=== PATIENT | female | born 2000 | race Caucasian/White ===

== ENCOUNTER 2020-01-16 12:06 | Outpatient (CLI) | payer OTHER, SELFPAY ==
[2020-01-16 13:27] LABS: Thyroid Stimulating Hormone 3.81 uIU/mL (0.52-4.13)
[2020-01-20 05:32] LABS: FSH 3.1 mIU/mL (***); Prolactin 8.8 ng/mL (***)
[2020-01-20 12:29] LABS: Testosterone Total 37 ng/dL (2-45)
== END 2020-01-16 12:07 | disposition home or self-care (01) ==
LOC: CHSLAB 12:15
DX: N91.2 Amenorrhea, unspecified (principal)
CPT/HCPCS: 36415; 83001; 84146; 84403; 84443

== ENCOUNTER 2024-02-18 10:05 | Outpatient (CLI) | payer OTHER, SELFPAY ==
[2024-02-18 10:33] VITALS: BP 107/59; PULSE 86
[2024-02-18 10:40] VITALS: BP 111/48; PULSE 82; BMI 51.9
[2024-02-18 10:46] VITALS: BP 111/48; PULSE 82
[2024-02-18 11:00] VITALS: BP 111/48; PULSE 82
[2024-02-18 11:01] VITALS: BP 117/47; PULSE 84
[2024-02-18 11:05] LABS: Hematocrit 37.7 % (37.0-47.0); Hemoglobin 12.3 g/dL (12.0-15.0); Immature Granulocyte Percent A 0.6 % (0-0.5); Mean Corpuscular HGB Conc 32.6 g/dl (32-36); Mean Corpuscular Hemoglobin 29.3 pg (26-34); Mean Corpuscular Volume 89.8 fl (80-100); Mean Platelet Volume 11.9 fl (7.4-10.4); Platelet Count Result 179 k/mm3 (150-375); Red Cell Distribution Width 14.6 % (11.5-14.5); White Blood Count 11.1 K/mm3 (4.5-10.0)
[2024-02-18 11:06] LABS: Basophils Percent Auto 0.2 % (0.2-1.2); Eosinophils Absolute Auto 0.1 K/mm3 (0-0.3); Eosinophils Percent Auto 0.6 % (0-4.4); Immature Granulocyte Absolute 0.07 K/mm3 (0.00-0.031); Lymphocytes Absolute Auto 1.85 K/mm3 (0.9-3.2); Lymphocytes Percent Auto 16.7 % (18.3-44.2); Monocytes Absolute Auto 0.6 K/mm3 (0.1-0.6); Monocytes Percent Auto 5.6 % (2.6-8.5); Neutrophils Absolute Auto 8.5 K/mm3 (1.3-6.7); Neutrophils Percent Auto 76.3 % (45.5-73.1)
[2024-02-18 11:10] LABS: Creatinine Urine 129.2 mg/dL; Total Protein Urine Random 9 mg/dL; Ur Ttl Prot Creatinine Ratio 0.07 mg/mg (0-0.20)
[2024-02-18 11:12] LABS: Alanine Aminotransferase 11 U/L (6-35); Albumin Level 3.8 g/dL (3.5-5.1); Alkaline Phosphatase 70 U/L (38-126); Anion Gap 9 mmol/L (4-12); Aspartate Amino Transferase 15 U/L (14-36); Bilirubin,Total 0.2 mg/dL (0.2-1.3); Blood Urea Nitrogen 4 mg/dL (7-17); Carbon Dioxide 24 mmol/L (22-30); Chloride 102 mmol/L (98-107); Estimated Glomerular Filt Rate > 60; Glucose 110 mg/dL (65-110); Potassium 3.6 mmol/L (3.4-5.0); Sodium 135 mmol/L (137-145); Uric Acid 3.5 mg/dL (2.5-7.5)
[2024-02-18 11:23] LABS: Add Urine Microscopic? YES; Appearance Urine Cloudy (Clear); Bacteria Urine 4+ /hpf; Bilirubin Urine Negative (Negative); Blood Urine Negative (Negative); Color Urine Yellow (Yellow); Glucose Urine UA Negative (Negative); Ketones Urine Negative (Negative); Leukocyte Esterase Ur 1+ LEU/UL (Negative); Need Manual Microscopic Reviewed; Nitrate Urine Negative (Negative); Non Pathogenic Casts 0-2; Protein Urine Negative (Negative); Specific Grav Ur 1.016 (1.001-1.035); Squamous Epithelial Cell Urine Many /hpf (Few)
== END 2024-02-18 11:20 | disposition home or self-care (01) ==
LOC: ANHOBOP 10:14 → ANHOBPP 10:15
PROVIDERS: Visit Provider Advanced Practice Midwife
DX: O13.9 Gestational [pregnancy-induced] hypertension without significant proteinuria, unspecified trimester (principal); Z3A.00 Weeks of gestation of pregnancy not specified
CPT/HCPCS: 36415; 59025; 80053; 81001; 82570; 84156; 84550; 85025; 87086; 87088; 99199

== ENCOUNTER 2024-04-14 17:05 | Outpatient (CLI) | payer OTHER, SELFPAY ==
[2024-04-14 17:31] VITALS: BP 122/75; PULSE 71
[2024-04-14 17:39] LABS: Basophils Percent Auto 0.2 % (0.2-1.2); Eosinophils Percent Auto 0.3 % (0-4.4); Hematocrit 37.7 % (37.0-47.0); Hemoglobin 12.2 g/dL (12.0-15.0); Immature Granulocyte Absolute 0.05 K/mm3 (0.00-0.031); Immature Granulocyte Percent A 0.4 % (0-0.5); Lymphocytes Percent Auto 18.5 % (18.3-44.2); Mean Corpuscular HGB Conc 32.4 g/dl (32-36); Mean Corpuscular Hemoglobin 28.1 pg (26-34); Mean Corpuscular Volume 86.9 fl (80-100); Mean Platelet Volume 11.7 fl (7.4-10.4); Neutrophils Absolute Auto 9.5 K/mm3 (1.3-6.7); Neutrophils Percent Auto 72.6 % (45.5-73.1); Platelet Count Result 182 k/mm3 (150-375); Red Blood Count 4.34 M/mm3 (4.2-5.4)
[2024-04-14 17:46] LABS: Creatinine Urine 101.4 mg/dL; Total Protein Urine Random 36 mg/dL; Ur Ttl Prot Creatinine Ratio 0.36 mg/mg (0-0.20)
[2024-04-14 17:47] VITALS: BP 121/57; PULSE 72
[2024-04-14 17:52] LABS: Alanine Aminotransferase 9 U/L (6-35); Albumin Level 3.3 g/dL (3.5-5.1); Alkaline Phosphatase 115 U/L (38-126); Anion Gap 5 mmol/L (4-12); Aspartate Amino Transferase 13 U/L (14-36); Bilirubin,Total 0.3 mg/dL (0.2-1.3); Blood Urea Nitrogen 5 mg/dL (7-17); Carbon Dioxide 25 mmol/L (22-30); Chloride 108 mmol/L (98-107); Estimated Glomerular Filt Rate > 60; Glucose 90 mg/dL (65-110); Potassium 3.8 mmol/L (3.4-5.0); Sodium 138 mmol/L (137-145); Uric Acid 3.9 mg/dL (2.5-7.5)
[2024-04-14 17:53] LABS: Add Urine Microscopic? YES; Appearance Urine Cloudy (Clear); Bacteria Urine 4+ /hpf; Bilirubin Urine Negative (Negative); Blood Urine 1+ (Negative); Color Urine Yellow (Yellow); Glucose Urine UA Negative (Negative); Ketones Urine Negative (Negative); Leukocyte Esterase Ur 3+ LEU/UL (Negative); Need Manual Microscopic Reviewed; Nitrate Urine Positive (Negative); Protein Urine Trace mg/dL (Negative); RBC Urine 0-2 /hpf (0-2); Specific Grav Ur 1.011 (1.001-1.035); Squamous Epithelial Cell Urine Occasional /hpf (Few); WBC Urine >100 /hpf (0-3)
[2024-04-14 17:57] VITALS: BP 122/75; PULSE 71; BMI 49.2
[2024-04-14 18:02] VITALS: BP 110/36; PULSE 164
[2024-04-14 18:05] VITALS: BP 99/53; PULSE 62
--- NOTE | 2024-04-14 18:08 | PC.NURSE ---
Lenard Ragsdale notified of that patient is rating a 7-8 for the last three days. Lab results reported. Orders received.
[2024-04-14 18:16] VITALS: BP 102/47; PULSE 66
[2024-04-14] MEDS: ACETAMINOPHEN/BUTALBITAL/CAFFEINE 325-50-40 MG TABLET (FIORICET) 2 TAB PO (18:31)
[2024-04-14] MEDS: CEPHALEXIN 500 MG CAPSULE PO (18:31)
--- NOTE | 2024-04-14 18:41 | PC.NURSE ---
183- Fioricet and Keflex administered. RN made pt aware that she is not to drive on this medication and she is to [facility] tomorrow morning 1833- Pt states her and her significant other would like to leave and headache is already better. RN restated that pt is not to drive while taking this medication. RN contacted CNM and made her aware of pts desire to leave. CNM stated pt okay to leave as long as she has a ride. 1837- Pt walking out of unit with significant other and child.
== END 2024-04-14 18:38 | disposition home or self-care (01) ==
LOC: ANHOBOP 17:10 → ANHOBPP 17:12
PROVIDERS: Visit Provider Advanced Practice Midwife
DX: O13.9 Gestational [pregnancy-induced] hypertension without significant proteinuria, unspecified trimester (principal); R51.9 Headache, unspecified; Z3A.00 Weeks of gestation of pregnancy not specified
CPT/HCPCS: 36415; 59025; 80053; 81001; 82570; 84156; 84550; 85025; A9270

== ENCOUNTER 2024-04-23 06:07 | Inpatient (IN) | payer OTHER, SELFPAY ==
[2024-04-23] VITALS (146 sets, daily range): BP systolic 90–166; BP diastolic 12–110; PULSE 57–159; RESP 12–16; TEMP 36–37.6; O2SAT 95–100; BMI 49.9
--- NOTE | ~2024-04-23 | US_ITS ---
EXAMINATION: US renal BI DATE: 04/23/2024 22:54 INDICATION: Flank pain. TECHNIQUE: Multiple ultrasound grayscale images of the kidneys were obtained. COMPARISON: None. FINDINGS: The right kidney measures 14.9 x 5.6 x 6.5 cm. The left kidney measures 15.7 x 6.0 x 5.8 cm. The kidn eys demonstrate normal parenchymal echogenicity. There is no hydronephrosis. The bladder is normal. IMPRESSION: 1. Normal kidneys. No hydronephrosis. Reviewed, dictated and finalized at location A. BOBBER
--- NOTE | 2024-04-23 06:44 | WPDANESEPP ---
Anes - Eval Pre Procedure Procedure: labor epidural Date/Time: 04/23/24 06:44 Preop Diagnosis: pain during labor Pre Op Diagnosis: IOL Patient Data Age: 24 Gender: F Height: Weight: Allergies Allergy/AdvReac Type Severity Reaction Status Date / Time No Known Allergies Allergy Verified 04/08/24 14:59 Home Medications Medication Instructions Recorded Confirmed Type buspirone 10 mg tablet 10 mg PO BID 02/18/24 04/08/24 History cariprazine 1.5 mg capsule 1.5 mg PO DAILY 02/18/24 04/08/24 History (Vraylar) citalopram 40 mg tablet 40 mg PO DAILY 02/18/24 04/08/24 History vit no.95-ferrous 1 tablet PO DAILY 02/18/24 04/08/24 History fumarate 28 mg-folic acid 800 mcg tablet () aspirin 81 mg tablet 81 mg PO DAILY 04/08/24 04/08/24 History insulin glargine 100 unit/mL 26 unit subcut BID 04/08/24 04/08/24 History subcutaneous cartridge cephalexin 500 mg capsule 500 mg PO Q12H #14 caps 04/14/24 Rx Patient hx anesthesia problems: none Family hx anesthesia problems: none Results Review: All pre-operative results and documents have been reviewed as part of the pre-operative evaluation. [facility] Past Medical History Medical History (Updated 04/23/24 @ 06:45 by Dimple Royal CRNA) Bipolar 1 disorder IUP (intrauterine ), incidental Family History Family History (Updated 04/08/24 @ 15:04 by Yandy Gallardo RN) Grandparent Chronic obstructive pulmonary disease Mother Thyroid disease Other Cancer Social History Social History Substance use: never Spiritual care concerns: No Exam Day of Procedure 04/23/24 06:44
[2024-04-23 07:31] LABS: Alanine Aminotransferase 9 U/L (6-35); Albumin Level 3.3 g/dL (3.5-5.1); Alkaline Phosphatase 130 U/L (38-126); Anion Gap 4 mmol/L (4-12); Aspartate Amino Transferase 18 U/L (14-36); Bilirubin,Total 0.2 mg/dL (0.2-1.3); Blood Urea Nitrogen 8 mg/dL (7-17); Carbon Dioxide 22 mmol/L (22-30); Chloride 110 mmol/L (98-107); Estimated Glomerular Filt Rate > 60; Glucose 90 mg/dL (65-110); Potassium 4.2 mmol/L (3.4-5.0); Sodium 136 mmol/L (137-145)
[2024-04-23] MEDS: LACTATED RINGERS 1,000 ML 125 ML IV CONT ×2 (07:38→13:13)
[2024-04-23] MEDS: AMPICILLIN 2 GM/NS 100 ML 2 GM/100 ML BAG IVPB (07:38)
--- NOTE | 2024-04-23 07:38 | LDADM ---
This patient, Lelia Cordova, was admitted to Labor/Delivery/Recovery 107 on 04/23/24 at 06:07. Plans for labor, pain management and were discussed with patient. Patient/family oriented to hospital policies and general routines including ID bracelet, bed and alarms, visiting hours, pain management, procedures, bathroom and other care routines, personal items, smoking policy, room service/diet and guest tray routines, infant security routines, and visiting hours. Patient/Family are encouraged to report perceived risks to care and to ask questions if they do not understand what they are told or what they should do. See OBIX for further documentation.
--- NOTE | 2024-04-23 07:41 | PM.IMHP ---
H&P: HPI History of Present Illness Date/Time: 04/23/24 07:41 Chief Complaint: pt here for medical IOL, pt has GDMA-2, am and nighttime insulin, Also pt has had 2 episodes of bright red vaginal bleeding, unexplained by exam and us, discussed with dr. holloway and plan for IOL, also complicated by obesity, +GBS,bipolar disorder,history of htn in previous pregnancies. pt c/o left sided flank pain today, afebrile, says it happened during last labor and currently taking keflex for a urinary tract infection. pt had a previous child pass away at 2 months of age from myocarditis. discussed risk of infection with internal monitors but will need tracing to proceed with IOL Review of Systems Review of Systems: All systems reviewed & are unremarkable except as noted in HPI and below PMFSH Past Medical History Medical History (Updated 04/23/24 @ 07:49 by Rosemary Ragsdale CNM) Bipolar 1 disorder IUP (intrauterine ), incidental Family History Family History (Updated 04/08/24 @ 15:04 by Yandy Gallardo RN) Grandparent Chronic obstructive pulmonary disease Mother Thyroid disease Other Cancer Social History Social History Substance use: never Spiritual care concerns: No Meds Home Medications and Allergies Home Medications Medication Instructions Recorded Confirmed Type buspirone 10 mg tablet 10 mg PO BID 02/18/24 04/08/24 History cariprazine 1.5 mg capsule 1.5 mg PO DAILY 02/18/24 04/08/24 History (Vraylar) citalopram 40 mg tablet 40 mg PO DAILY 02/18/24 04/08/24 History vit no.95-ferrous 1 tablet PO DAILY 02/18/24 04/08/24 History fumarate 28 mg-folic acid 800 mcg tablet () aspirin 81 mg tablet 81 mg PO DAILY 04/08/24 04/08/24 History insulin glargine 100 unit/mL 29 unit subcut BID 04/08/24 04/23/24 History subcutaneous cartridge cephalexin 500 mg capsule 500 mg PO Q12H #14 caps 04/14/24 04/23/24 Rx Allergies Allergy/AdvReac Type Severity Reaction Status Date / Time No Known Allergies Allergy Verified 04/08/24 14:59 Exam Const: General: cooperative Nutritional Appearance: obese Chest: Chest palpation & inspection: normal inspection of the chest Cardio: Rate: regular rate GI: Other: soft/gravid : Other: SVE 2/50/-2 AROM large amount of clear, odorless fluid, IUPC and FSE placed , unable to trace with external monitoring Skin: General skin exam: normal color Neuro: General: patient oriented x3 Extrem: Right lower extremity: normal to inspection Left lower extremity: normal to inspection Psych: Appearance: grossly normal H&P: Results Labs Labs: BMP 04/23/24 07:11 Sodium 136 L Potassium 4.2 Chloride 110 H Carbon Dioxide 22 BUN 8 Creatinine 0.70 Glucose 90 Calcium 9.0 Liver Function 04/23/24 Range/Units 07:11 Total Bilirubin 0.2 (0.2-1.3) mg/dL AST 18 (14-36) U/L ALT 9 (6-35) U/L Alkaline Phosphatase 130 H (38-126) U/L Albumin 3.3 L (3.5-5.1) g/dL Assessment and Plan Assessment and plan (1) 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
[2024-04-23 07:49] LABS: Uric Acid 5.2 mg/dL (2.5-7.5)
[2024-04-23 07:51] LABS: Rapid Plasma Reagin Non-Reactive (NonReactive)
[2024-04-23 08:02] LABS: Basophils Percent Auto 0.2 % (0.2-1.2); Eosinophils Percent Auto 0.3 % (0-4.4); Hematocrit 40.4 % (37.0-47.0); Hemoglobin 13.2 g/dL (12.0-15.0); Immature Granulocyte Absolute 0.07 K/mm3 (0.00-0.031); Immature Granulocyte Percent A 0.6 % (0-0.5); Lymphocytes Absolute Auto 1.81 K/mm3 (0.9-3.2); Lymphocytes Percent Auto 14.6 % (18.3-44.2); Mean Corpuscular HGB Conc 32.7 g/dl (32-36); Mean Corpuscular Hemoglobin 28.1 pg (26-34); Mean Platelet Volume 12.3 fl (7.4-10.4); Monocytes Absolute Auto 0.7 K/mm3 (0.1-0.6); Monocytes Percent Auto 5.2 % (2.6-8.5); Neutrophils Absolute Auto 9.8 K/mm3 (1.3-6.7); Neutrophils Percent Auto 79.1 % (45.5-73.1); Platelet Count Result 188 k/mm3 (150-375); Red Cell Distribution Width 14.7 % (11.5-14.5); White Blood Count 12.4 K/mm3 (4.5-10.0)
[2024-04-23] MEDS: fentaNYL CITRATE INJ (*CRX) 100 MCG/2 ML VIAL IV PUSH (08:02)
[2024-04-23 08:12] LABS: HIV 1/2 Ab P24 Ag Result Negative (Negative)
[2024-04-23] MEDS: OXYTOCIN 30 UNITS/NS 500 ML 30 UNITS/500 ML BAG IV CONT (08:26)
[2024-04-23 10:27] LABS: Glucose Point of Care 92 mg/dl (65-105)
[2024-04-23] MEDS: AMPICILLIN 1 GM/NS 50 ML 1 GM/50 ML BAG IVPB ×2 (11:16→15:19)
[2024-04-23 11:38] LABS: Add Urine Microscopic? YES; Appearance Urine Turbid (Clear); Bacteria Urine Rare /hpf; Bilirubin Urine Negative (Negative); Blood Urine 3+ (Negative); Color Urine Yellow (Yellow); Glucose Urine UA Negative (Negative); Ketones Urine Negative (Negative); Leukocyte Esterase Ur 3+ LEU/UL (Negative); Nitrate Urine Positive (Negative); Non Pathogenic Casts 0-2; Protein Urine 3+ mg/dL (Negative); RBC Urine >100 /hpf (0-2); Specific Grav Ur 1.016 (1.001-1.035); Squamous Epithelial Cell Urine None Seen /hpf (Few); Urobilinogen Urine 0.2 mg/dL (<2.0); WBC Urine >100 /hpf (0-3); pH Urine 6.5 (5.0-9.0)
[2024-04-23] MEDS: CEPHALEXIN 500 MG CAPSULE PO (11:46)
[2024-04-23] MEDS: busPIRone HCL 10 MG TABLET PO (11:46)
[2024-04-23 12:14] LABS: Amphetamine Screen Urine Negative (Negative); Barbiturate Screen Urine Negative (Negative); Benzodiazepines Screen Urine Negative (Negative); Cannabinoid Screen Urine Positive (Negative); Cocaine Screen Urine Negative (Negative); Methadone Screen Urine Negative (Negative); Opiate Screen Urine Negative (Negative); Phencyclidine Screen Urine Negative (Negative)
[2024-04-23 13:05] LABS: Glucose Point of Care 73 mg/dl (65-105)
[2024-04-23 15:23] LABS: Glucose Point of Care 78 mg/dl (65-105)
--- NOTE | 2024-04-23 16:03 | PM.OBPRVD ---
OB - Vaginal Delivery Note Procedure Delivery date: 04/23/24 Events: Gestational Diabetes and Positive Group B Strep (GBS) Induction method: AROM and Per Pitocin Protocol Delivery monitor: Internal FHT and Internal Uterine Route of delivery: Episiotomy description: None Laceration Description: None Specimen: Yes Quantitative Blood Loss (ml): 70 Anesthesia type: Epidural Disposition: Floor Narrative: asparagus buncher at for GDMA-2 Baby Date of : 04/23/24 Time of : 15:43 Gestational Age by Date: 37 gender: Female presentation: vertex position: Right Occiput Anterior Placenta delivery description: Spontaneous Cord Vessel Description: 3 Vessels, Nuchal Cord (x1), Loose and Reduced Narrative: baby to nursery
[2024-04-23] MEDS: OXYTOCIN 30 UNITS/NS 500 ML 30 UNITS/500 ML BAG 125 UNITS IV CONT (16:17)
[2024-04-23] MEDS: ONDANSETRON INJ 4 MG/2 ML VIAL IV PUSH (16:18)
--- NOTE | 2024-04-23 17:45 | S_PTH ---
PATIENT: Lelia Cordova LOC: [facility] U#:[id number] AGE/SX: 24/F ROOM: 286 RE04/23/[address]: Bryce Hurtado MD : 2000 BED: 00 DIS: 04/25/2024 SPEC #: [id number] RECD: 04/24/24 07:27 STATUS: ELFEGO REQ #: [id number] CRISTOBAL: 04/23/24 17:[address]: Rosemary Ragsdale DEPT: [facility] Surgical RECD BY: Sarahi Castro ENTERED: 04/24/24 07:28 SP TYPE: Surgical OTHR DR: Bryce Hurtado MD Tissues: A - Placenta Procedures: Hematoxylin and Eosin Stain Gross and Microscopic Level 5
--- NOTE | 2024-04-23 19:20 | OBPPTRN ---
Patient transferred to post room #286 via wheelchair. Support person present. Oriented to unit, room, information board, rooming in, admission packet and security measures. Patient verbalizes understanding.
[2024-04-23] MEDS: IBUPROFEN 600 MG TABLET PO (22:09)
[2024-04-23] MEDS: ACETAMINOPHEN 325 MG TABLET 650 MG PO (22:09)
[2024-04-24] MEDS: busPIRone HCL 10 MG TABLET PO ×3 (00:43→22:08)
[2024-04-24] MEDS: CITALOPRAM HYDROBROMIDE 20 MG TABLET 40 MG PO ×2 (00:43→22:08)
[2024-04-24] MEDS: CEPHALEXIN 500 MG CAPSULE PO ×2 (00:44→12:16)
[2024-04-24 04:38] LABS: Hematocrit 36.7 % (37.0-47.0); Hemoglobin 12.1 g/dL (12.0-15.0)
--- NOTE | 2024-04-24 08:08 | P.PNOB_ITS ---
OB - PN: Subj Subjective Date/time seen: 04/24/24 08:08 Patient comments: no complaints, pain well controlled, incisional pain, tolerating diet and flatus present OB - PN: Obj Data Labs 04/24/24 04:34 04/23/24 07:11 Labs: Laboratory Results - last 24 hr 04/23/24 04/23/24 04/23/24 07:11 10:22 11:25 Hgb Hct POC Capillary Glucose 92 Urine Color Yellow Urine Appearance Turbid H Urine pH 6.5 Ur Specific [place] 1.016 Urine Protein 3+ H Urine Glucose (UA) Negative Urine Ketones Negative Ur Blood (Man) 3+ H Urine Nitrate Positive H Urine Bilirubin Negative Urine Urobilinogen 0.2 Leukocyte Esterase Rfl 3+ H Urine RBC >100 H Urine WBC >100 H Ur Squamous Epith Cells None seen Urine Bacteria Rare Urine Casts 0-2 Urine Opiates Screen Negative Urine Methadone Screen Negative Ur Barbiturates Screen Negative Ur Phencyclidine Scrn Negative Ur Amphetamine Screen Negative U Benzodiazepines Scrn Negative Urine Cocaine Screen Negative U Cannabinoids Screen Positive A HIV 1&2 Ab/P24 Ag 4thGn Negative Blood Type O Positive Antibody Screen Negative 04/23/24 04/23/24 04/24/24 13:02 15:21 04:34 Hgb 12.1 Hct 36.7 L POC Capillary Glucose 73 78 Urine Color Urine Appearance Urine pH Ur Specific [place] Urine Protein Urine Glucose (UA) Urine Ketones Ur Blood (Man) Urine Nitrate Urine Bilirubin Urine Urobilinogen Leukocyte Esterase Rfl Urine RBC Urine WBC Ur Squamous Epith Cells Urine Bacteria Urine Casts Urine Opiates Screen Urine Methadone Screen Ur Barbiturates Screen Ur Phencyclidine Scrn Ur Amphetamine Screen U Benzodiazepines Scrn Urine Cocaine Screen U Cannabinoids Screen HIV 1&2 Ab/P24 Ag 4thGn Blood Type Antibody Screen Imaging Radiologist's impression: Impressions Renal Ultrasound 04/23/24 23:11 IMPRESSION: 1. Normal kidneys. No hydronephrosis. OB - PN A/P Plan day: 1 Plan: routine care Comments: No problems, routine care Time Spent With Patient Time: Total time spent is greater than 50% in coordination of care (as documented) at patient's floor/unit and/or counseling patient: Exam Const: General: comfortable, no acute distress and alert Resp: Effort & Inspection: normal respiratory effort Auscultation: no crackles, no rales and no rhonchi Cardio: Rate: regular rate Heart sounds: no click, no murmurs and no rubs GI: Inspection: non-distended GI Palp: No Tenderness to palpation present (GI) Auscultation: normal bowel sounds Other: Incision - CDI Extrem: General: normal to inspection, no pedal edema and no calf tenderness
[2024-04-24 08:40] VITALS: BP 136/92; PULSE 87; RESP 16; TEMP 37.1; O2SAT 99
[2024-04-24] MEDS: IBUPROFEN 600 MG TABLET PO (09:13)
[2024-04-24] MEDS: MULTIVIT/MIN/PREN/FOL AC/IRON TABLET 1 TAB PO (09:13)
--- NOTE | 2024-04-24 11:17 | PCCCNOTE ---
Consult received for mother scored high on the OB Substance Abuse Screening. Met with mother and father in bedroom. Mother confirmed she does smoke marijuana which is legal and she did test positive for Marijuana per PEDRITO Fuentes. PEDRITO Fuentes stated they did not test the baby's cord. Mother confirmed baby girl will stay with her, baby's father, and sister (2 year old). Mother reported they did have another baby; however, he at 2 months old. Mother confirmed they have all the needed baby supplies and a engraver tire mold for baby girl. and substance abuse resource information given to mother. Mother and father did not voice any concerns or needs at this time. No social service concerns at this time.
[2024-04-24 12:11] VITALS: BP 129/90; PULSE 83; RESP 16; TEMP 36.3; O2SAT 97
--- NOTE | 2024-04-24 14:45 | WPDANLDPN2 ---
Anes-Prog Note L&D Date/Time: 04/24/24 14:45 Comfortable throughout: labor and delivery Neuraxial method: epidural Epidural/Spinal procedure site: clean & non-tender Neuro status: Neuro function grossly intact. Cardiovascular status: normal Respiratory status: normal Airway patency: baseline Mental status: baseline Post-Op hydration status: normal Vital Signs: Last Vital Signs Temp 36.3 C L 04/24/24 12:11 Pulse 83 04/24/24 12:11 Resp 16 04/24/24 12:11 BP 129/90 04/24/24 12:11 Pulse Ox 97 04/24/24 12:11 O2 Del Method Room Air 04/23/24 06:59 Pain score (VAS): 3/10 I/O: Intake & Output 04/23/24 04/24/24 04/24/24 23:59 07:59 15:59 Intake Total 500 240 Output Total 130 Balance 370 240 Post-procedural complaints: none Patient feedback: Patient satisfied with anesthetic care.
--- NOTE | 2024-04-24 15:38 | PC.NURSE ---
1430. Introductions were made, then consulted with patient to assess needs related to . Mother led the conversation with her?plans to feed?her infant and the?experience so far. Mom explained that she breastfed her first 2 for a short time. She does have a history of GDM, HTN, and PCOS so she is at risk for low milk supply. She reports she has been pumping and feeding since infant has been in level 2 since . Mom reports she has a pump at home and has measured her nipples and feels comfortable with the sizing and fit. Mom was asked if she needs a WIC referral, and she reports she plans to use WIC and has already been in contact with her [place] resource near [place], [place]. Mom reports she wants to try and bring baby to breast for the next feeding and plans to call for help if she struggles to get her to latch. We reviewed understanding of the benefits of skin to skin (demonstrating unwrapping infant and placing upright on her chest), stimulating with massage touch, changing positions to encourage wakefulness, how to watch for early feeding cues, responsive feeding, feeding on demand (aiming for 8-12 times in 24 hours, about every 2-3 hours), milk production, building/maintaining a milk supply, duration of feeding, signs of adequate intake/output and how to record on the feeding sheet. Reviewed positioning and ear, shoulder, hip alignment, supporting the breast to facilitate a deep latch, asymmetrical latch (off-center), leading with the chin with a big, open, wide gape and body close to mother. Resources used for education were facilitated with the visual educational handouts/ tool/mom and baby guide. Inpatient resources provided with feeding sheet, name written on the communication board, and the mom/baby guide. Parents voiced understanding of information, demonstrated learning and will call if there is a request for assistance. Reported to the Primary RN.
[2024-04-24] MEDS: DOCUSATE SODIUM 100 MG CAPSULE PO (16:30)
[2024-04-24 19:55] VITALS: BP 139/80; PULSE 76; RESP 12; TEMP 37.3; O2SAT 99
[2024-04-24] MEDS: ACETAMINOPHEN 325 MG TABLET 650 MG PO (19:57)
[2024-04-25] MEDS: CEPHALEXIN 500 MG CAPSULE PO ×2 (06:45→13:52)
--- NOTE | 2024-04-25 07:36 | PM.OBPNVD ---
OB - PN: Subj Subjective Date/time seen: 04/25/24 07:36 Interval history: pp day 2 doing well desires d/c home OB - PN: Obj Data Labs 04/24/24 04:34 04/23/24 07:11 OB - PN A/P Plan day: 2 Plan: routine care and discharge home Time Spent With Patient Time: Total time spent is greater than 50% in coordination of care (as documented) at patient's floor/unit and/or counseling patient: Review of Systems Review of Systems: All systems reviewed & are unremarkable except as noted in HPI and below Exam Const: General: cooperative, healthy appearing and comfortable Chest: Chest palpation & inspection: normal inspection of the chest Cardio: Rate: regular rate Skin: General skin exam: normal color
[2024-04-25] MEDS: MULTIVIT/MIN/PREN/FOL AC/IRON TABLET 1 TAB PO (07:56)
[2024-04-25] MEDS: IBUPROFEN 600 MG TABLET PO (07:57)
[2024-04-25] MEDS: busPIRone HCL 10 MG TABLET PO (07:57)
[2024-04-25] MEDS: TETANUS,DIPHTHERIA,AC PERTUSSIS ADULT (0.5 ML) BOOSTRIX IM (07:58)
[2024-04-25 08:15] VITALS: BP 134/77; PULSE 73; RESP 18; TEMP 36.4; O2SAT 99
--- NOTE | 2024-04-25 11:30 | PC.NURSE ---
Introductions were made, then consulted with patient to assess needs related to . Discussed with mother her?plans to feed?her and the?experience so far. She has been 5 minutes per breast, pumping, and supplementing with pumped milk/formula at each feeding. She says she feels like baby's latch is shallow and that if she doesn't begin latching better, she will just pump and bottle feed. Encouraged patient to call out for assistance today. Resources provided for inpatient and outpatient services with the feeding sheet, mom/baby guide and name written on the communication board. Mother voiced understanding of information and will call if there is a request for assistance. Reported to the Primary RN.
[2024-04-26 08:47] VITALS: BP 138/90; PULSE 84; RESP 18; TEMP 36.9; O2SAT 97
--- NOTE | 2024-04-28 12:57 | P.DS_ITS ---
DS: Admitting Diagnosis Discharge Date 04/25/24 Admitting Diagnosis IOL, vaginal bleeding DS: Discharge Diagnosis Discharge Diagnosis (1) Vaginal delivery: Code(s): O80 - Encounter for full-term uncomplicated delivery Status: Acute OB - DS: Summary OB Procedures : None OB Procedures Intrapartum: Spontaneous Vag Delivery OB Procedures: : None Peripartum Data Laceration Description: None Episiotomy description: None Time Spent with Patient Time attestation: Total time spent providing and/or coordinating discharge services: DS: Data Data Completed and Pending Completed studies during hospitalization: Pending at discharge 04/23/24 17:45 Surgical [PTH] Routine Discharge Plan Discharge Attending physician on discharge: Bryce Hurtado Consulting providers: Rosemary Ragsdale; Dimple Royal; Titi Walls; Brennon Malloy V. Discharging Clinician: Rosemary Ragsdale Patient Disposition: Home, Self-Care Activity: pelvic rest Diet: regular Discharge Instructions: Education: Mom and Baby Guide Given to: Mother Follow-Up: Call your delivering provider's office for an appointment to be seen in: 2 Weeks Mom and baby should come to the [facility] for the follow-up appointment. Appointment Date/Time: April 26, 2024 at 8:00 am What to expect at your follow-up visit: Physical Assessment Call [phone] if you are unable to keep your appointment time. BREAST CARE: * Wear a snug supportive bra. * For engorgement discomfort: Breast Feeding: * Apply warm moist washcloths * Express milk as needed to relieve engorgement * Wear loose clothing * For sore nipples: * Identify correct latch-on * Apply warm moist washcloths before and after nursing * Air dry nipples after nursing * May apply Lansinoh cream to nipples EPISIOTOMY/PERINEAL CARE: * Until bleeding stops, use your jun bottle after urinating * Change your pad frequently throughout the day * No tub baths until seen by your physician - You may shower ACTIVITY: * Rest as much as possible. * Do not exercise or lift anything heavier than your baby (such as laundry or other children.) * Avoid stairs or driving as much as possible. * Do not put anything into the vagina. No douching, tampons, or sexual activity until seen by physician. NOTIFY PHYSICIAN IF YOU HAVE ANY QUESTIONS OR IF ANY OF THE FOLLOWING SYMPTOMS OCCUR: * If your perineum becomes red, swollen, or more painful than what you have experienced in the hospital. * If your vaginal bleeding becomes foul smelling. * If your vaginal bleeding becomes more heavy than a period or if your bleeding changes from pink to bright red. However, you may pass an occasional walnut- sized clot once or twice for the first week . * If you experience a sharp, shooting pain in you calves. * If you discover a hard, reddened area on your breast or if you experience flu- like symptoms. DIET: * Eat regular, well-balanced meals. * Drink plenty of fluids daily. If , drink to thirst. Patient Instructions: Antibiotic Form Stand Alone Forms: General Discharge Information Follow-up/Referrals: Rosemary Ragsdale CNM [Certified Nurse [employer]] - 2 Weeks Discharge Medications: New ibuprofen 600 mg Tablet 600 mg PO Q6H PRN (Reason: Cramping) Qty: 30 0RF Continued citalopram 40 mg tablet 40 mg PO DAILY buspirone 10 mg tablet 10 mg PO BID PNV cmb#95-ferrous fumarate-FA [] 28 mg iron- 800 mcg Tablet 1 tablet PO DAILY Vraylar 1.5 mg capsule 1.5 mg PO DAILY Discontinued aspirin 81 mg Tablet 81 mg PO DAILY Lantus U-100 Insulin 100 unit/mL Cartridge 29 unit SUBCUT BID cephalexin 500 mg Capsule 500 mg PO Q12H Qty: 14 0RF Date of admission: 04/23/24 06:07 Primary Care Provider: Lina Cummins Admitting Provider: Bryce Hurtado Attending physician on admission: Bryce Hurtado Condition: Stable
== END 2024-04-25 17:52 | disposition home or self-care (01) | DRG 560 ==
LOC: ANHLDR 06:13 → ANHOB2 19:31
PROVIDERS: Advanced Practice Midwife; Admitting Provider Obstetrics & Gynecology; Referring Provider Obstetrics & Gynecology; Visit Provider Obstetrics & Gynecology
DX: O16.4 Unspecified maternal hypertension, complicating childbirth (principal); O99.214 Obesity complicating childbirth; O99.824 Streptococcus B carrier state complicating childbirth; O67.9 Intrapartum hemorrhage, unspecified; O69.81X0 Labor and delivery complicated by cord around neck, without compression, not applicable or unspecified; O24.424 Gestational diabetes mellitus in childbirth, insulin controlled; Z3A.37 37 weeks gestation of pregnancy; Z37.0 Single live birth; O99.344 Other mental disorders complicating childbirth; F31.9 Bipolar disorder, unspecified
CPT/HCPCS: 36415; 76775; 80053; 80307; 81001; 82948; 84550; 85014; 85018; 85025; 86592; 86703; 86850; 86900; 86901; 87086; 88307; 90715; A9270; G0432; J0290; J2405; J2590; J2795; J3010; J7120